=== PATIENT | male | born 1990 | race American Indian/Alaskan Native ===

== ENCOUNTER 2023-03-20 19:31 | Observation (INO) | payer OTHER ==
[~2023-03-20] VITALS: Ht 175.3 cm; Wt 61.5 kg
[~2023-03-20 19:31] MED LIST: IBUPROFEN400 MG PO
[2023-03-20 20:13] LABS: EOSINOPHILS 0.1 % (0-6)
[2023-03-20 20:18] LABS: BASOPHILS 0.6 % (0-2); HEMATOCRIT 38.1 % (35.0-50.0); HEMOGLOBIN 13.1 g/dL (12.0-18.0); LYMPHOCYTES 10.3 % (24-44); MCH 30.7 (27-36); MCHC 34.5 g/dl (30-36); MCV 88.8 fl (81-99); MONOCYTES 8.6 % (0-12); NEUTROPHILS 80.4 % (39-80); RBC 4.29 M/ul (4.3-5.7); RDW 12.9 (10.5-15.0)
[2023-03-20 20:29] LABS: ALBUMIN 4.4 g/dL (3.4-5.0); ALBUMIN/GLOBULIN RATIO 1.47 (1.1-2.4); ALCOHOL, MEDICAL <3 ng/dL (<3); ALKALINE PHOSPHATASE 78 U/L (46-116); ALT (SGPT) 19 U/L (14-59); ANION GAP 14.1 (7-21); AST (SGOT) 37 U/L (15-37); BUN/CREATININE RATIO 17.44 (6.0-28.6); CALCIUM 9.1 mg/dL (8.5-10.1); CARBON DIOXIDE 27 mmol/L (21-32); CHLORIDE 102 mmol/L (98-107); CREATININE, SERUM 0.86 mg/dL (0.70-1.30); GLOMERULAR FILTRATION RATE,EST 117 mL/min (>60); POTASSIUM 4.1 mmol/L (3.5-5.1); PROTEIN, TOTAL 7.4 g/dL (6.4-8.2); UREA NITROGEN 15 mg/dL (7-18)
[2023-03-20 20:30] LABS: INR 1.13 (0.80-1.30); PROTIME 14.1 Sec (11.2-14.2)
[2023-03-20 20:38] LABS: PLATELET COUNT 16 K/uL (140-440)
[2023-03-20 20:56] LABS: ABO A; ANTIBODY SCREEN NEGATIVE; RH POSITIVE
[2023-03-20 21:54] LABS: ABO A; RH POSITIVE
[2023-03-20 21:58] LABS: BILIRUBIN, URINE NEGATIVE (negative); BLOOD/HGB, URINE SMALL (Negative); KETONE, URINE TRACE (Negative); LEUK ESTERASE, URINE NEGATIVE (negative); NITRITE, URINE NEGATIVE (negative)
[2023-03-20 22:05] LABS: AMPHETAMINES, UR NEGATIVE (NEGATIVE); BARBITURATES, UR NEGATIVE (NEGATIVE); BENZODIAZEPINES, UR NEGATIVE (NEGATIVE); BUPRENORPHINE,UR NEGATIVE (NEGATIVE); COCAINE, UR NEGATIVE (NEGATIVE); MARIJUANA (THC), UR POSITIVE (NEGATIVE); MDMA, UR NEGATIVE (NEGATIVE); METHADONE, UR NEGATIVE (NEGATIVE); METHAMPHETAMINE, UR NEGATIVE (NEGATIVE); OPIATES, UR POSITIVE (NEGATIVE); OXYCODONE, UR NEGATIVE (NEGATIVE); PHENCYCLIDINE, UR NEGATIVE (NEGATIVE); TRICYCLIC ANTIDEPRESSANT, UR NEGATIVE (NEGATIVE)
[2023-03-20 22:12] LABS: EPITHELIAL CELLS, URINE SQUAMOUS 1+ /lpf (0-1+)
[2023-03-20 22:13] LABS: CASTS, URINE HYALINE 1+ \\lpf; REFLEX CULTURE, URINE No (No)
[2023-03-20 23:37] LABS: INFLUENZA B NAA NEGATIVE (NEGATIVE); RESPIRATORY SYNCYTIAL VIR NAA NEGATIVE (NEGATIVE)
[2023-03-21] VITALS (7 sets, daily range): BP systolic 96–140; BP diastolic 52–92
--- NOTE | 2023-03-21 01:47 | NUR ---
RECEIVED REPORT FROM ED RN. NEURO- PATIENT QUAEMPJOCELYN ARRIVED TO THE CCU AT 1247 VIA STRETCHER. VSS AND WDL. ENDORSES PAIN 5/10. MORPHINE ADMINISTERED IN ED RESP- RA, LUNG SOUNDS CLEAR CARDIAC- SB- SR. AFEBRILE, NO EDEMA NOTED. GI/- DIFFICULTY URINATING. ED RN STRAIGHT CATHED PATIENT. HE ENDORSES COMFORT CURRENTLY AND STATES HE DOES NOT HAVE A NEED TO VOID INT- HEMATOMA ON RIGHT UPPER ARM NEAR ELBOW. SLIGHT BRIGHT ON LLQ OF ABDOMEN LDA- L 20G AC
--- NOTE | 2023-03-21 03:10 | NUR ---
PATIENT QUAEMPTS REPORTS COMFORT AND RESTING WITH EYES CLOSED. VSS WDL, NO EVIDENCE OF WORSENING TRAUMA. CALL LIGHT AND PERSONAL BELONGINGS WITHIN REACH.
--- NOTE | 2023-03-21 05:10 | NUR ---
PATIENT QUAISHWARYATS IS RESTING COMFORTABLY. DENIES ANY NEEDS, WANTS, OR DESIRES. HE ENDORSES RESTING WELL AND FEELS " A BIT BETTER" THIS AM.
[2023-03-21 05:19] LABS: BASOPHILS 1.3 % (0-2); HEMATOCRIT 35.2 % (35.0-50.0); HEMOGLOBIN 11.9 g/dL (12.0-18.0); LYMPHOCYTES 21.7 % (24-44); MCH 30.4 (27-36); MCHC 33.7 g/dl (30-36); MCV 90.3 fl (81-99); MONOCYTES 11.3 % (0-12); NEUTROPHILS 64.7 % (39-80); PLATELET COUNT 240 K/uL (140-440)
[2023-03-21 05:40] LABS: ALBUMIN 3.6 g/dL (3.4-5.0); ALBUMIN/GLOBULIN RATIO 1.38 (1.1-2.4); ANION GAP 10.9 (7-21); BILIRUBIN, TOTAL 1.5 ng/dL (0.2-1.0); BUN/CREATININE RATIO 17.5 (6.0-28.6); CALCIUM 8.5 mg/dL (8.5-10.1); CREATININE, SERUM 0.8 mg/dL (0.70-1.30); POTASSIUM 3.9 mmol/L (3.5-5.1); PROTEIN, TOTAL 6.2 g/dL (6.4-8.2)
--- NOTE | 2023-03-21 06:28 | NUR ---
Patient reports 7/10 pain in llq of abdomen. 4mg of morphine administered. Will reassess pain in 15minutes.
--- NOTE | 2023-03-21 07:10 | NUR ---
PATIENT SUMI WAS ABLE TO REST SINCE HIS ARRIVAL IN THE CCU. VSS AND WDL WITH NO CONCERNS. HE WAS UPDATED REGARDING PLAN OF CARE AND STATES THAT HE FEELS VERY INVOLVED AND HAPPY WITH CARE. NEURO- ALERT AND ORIENTED X 4. ENDORSES PAIN IN LLQ OF ABDOMEN AND RIGHT ARM. 4MG OF MORPHINE ADMINISTERED DURING SHIFT FOR PAIN 12/21. ABLE TO MOVE ALL EXTREMEITIES, HOWEVER IT PAIN AND WEAKNESS NOTED IN RUE. CARDIAC- SB-SR NOTED. BP WDL. AFEBRILE, NO EDEMA, S1 AND S2 NOTED. PALPABLE RADIAL, PEDAL AND POST TIBIAL PULSES 2/2 RESP- CLEAR LUNG SOUNDS IN ALL QUADRANTS, ABLE TO COUGH AND DEEP BREATH,ON ROOM AIR GI/- GENERAL DIET. PATIENT ABLE TO DRINK WATER BUT DID NOT REQUIRE ANY SNACKS OVERNIGHT. URINAL AT BEDSIDE. DENIED ANY NEED TO VOID OVERNIGHT AND JUST WANTED TO REST. LAST BM 03/20/23 IN THE AM INT- HEMATOMA AND BRUISES NOTED ON LLQ OF ABDOMEN AND RIGHT ELBOW. THEY REMAINED THE SAME THROUGHOUT THE SHIFT. LDA- 20G ON RUE REMAINS PATENT WITH DRESSINGS DRY AND INTACT. LR GTT AT 125CC P/HR PLAN- POSSIBLE DC TODAY HANDOFF GIVEN TO MORNING RN CREW. ALL QUESTIONS AND CONCERNS ADDRESSED.
--- NOTE | 2023-03-21 07:30 | NUR ---
REPORT RECEIVED. PATIENT IS RESTING IN BED. C/O PAIN LLQ. TALKED WITH PATIENT ABOUT DX. DENIES NAUSEA, BOWEL SOUNDS ACTIVITY. IVF PATENT. RIGHT ELBOW AREA WITH SMALL AMOUNT OF SWELLING. SAID THE ELBOW PAIN IS LESS TODAY.TALKED WITH PATIENT ABOUT POC FOR THE DAY. INDICATES UNDERSTANDING.IVF PATENT. FLORIN NEED TO VOID.
--- NOTE | 2023-03-21 09:00 | NUR ---
MORPHINE 4 MG IV GIVEN FOR LLQ PAIN, RATES 7/10. CONTINUES TO TAKE BREAKFAST. DENIES INCREASE ABD PAIN WITH EATING.
--- NOTE | 2023-03-21 10:28 | NUR ---
urine sample collected. urine sample sent to lab w appropriate labels.
--- NOTE | 2023-03-21 10:40 | NUR ---
DR. WALLACE UPDATED ON PATIENT STATUS, AWARE OF VISUAL BLOOD IN URINE.
--- NOTE | 2023-03-21 12:00 | NUR ---
HAS BEEN SLEEPING. NOT AWAKENED FOR LUNCH AT THIS TIME. WILL HOLD LUNCH UNTIL WAKES. NO DISTRESS NOTED. IVF INFUSING.
--- NOTE | 2023-03-21 13:10 | NUR ---
DR. WALLACE HERE TO SEE PATIENT. ORDERS RECEIVED.
--- NOTE | 2023-03-21 13:20 | NUR ---
TO CT VIA W/C.
--- NOTE | 2023-03-21 13:30 | NUR ---
RETURN TO ROOM 126. TOL[address] WELL. SITTING UP IN BED FOR LUNCH.
--- NOTE | 2023-03-21 14:00 | NUR ---
TOOK LUNCH FAIR. RATES LLQ PAIN 5/10.
--- NOTE | 2023-03-21 14:05 | NUR ---
NIEVESO 2 () TABS GIVEN FOR PAIN.
--- NOTE | 2023-03-21 15:00 | NUR ---
AMBULATED TO BR TO VOID 400 ML OF HAI URINE. NO VISUAL BLOOD NOTED. DENIES PAINFUL URINATION AT THIS TIME. IVF INFUSING AT 100 ML/HR.
--- NOTE | 2023-03-21 17:35 | NUR ---
UP TO BR TO VOID TO URINAL. URINE IS CLEAR YELLOW. STATES STREAM ON URINE IS ID NORMAL NOW. CONTINUES TO DENY PAIN WITH VOIDING.
--- NOTE | 2023-03-21 17:45 | NUR ---
AMBULATED IN [facility]HAN OUT ON MED-SURG, RN WITH PATIENT. TOLERATED WELL.
--- NOTE | 2023-03-21 18:00 | NUR ---
C/O NAUSEA. ZOFRAN 8 MG IV GIVEN.
--- NOTE | 2023-03-21 18:13 | NUR ---
DR. WALLACE UPDATED ON CT SCAN WELL CURRENT OVERALL STATUS. NO FUTHER ORDERS AT THIS TIME.
--- NOTE | 2023-03-21 18:34 | NUR ---
DENIES NAUSEA. RESTING.
--- NOTE | 2023-03-21 20:30 | NUR ---
PATIENT UP TO THE BATHROOM TO VOID. PATIENT VOIDED IN TOILET, NOT URNAL. REPORTS URINE A "YELLOW" WITH NO SIGNS OF BLOOD LIKE PREVIOUSLY NOTED. PATIENT DID NOT HAVE PAIN OR DIFFICULTY VOIDING. PATIENT RETURNED TO BED. FRESH ICE WATER AND A SNACK PROVIDED. PATIENT HAS POOR APPETITE AND DID NOT EACH MUCH OF HIS DINNER. PATIENT NOTED TO HAVE BRUISING ON HIS LLQ AND ON HIS RIGHT ELBOW. PATIENT REPORTS PAIN WELL CONTROLLED WITH NORCO. DENIED ANY OTHER NEEDS RIGHT NOW. CALL LIGHT IN REACH.
--- NOTE | 2023-03-21 22:27 | NUR ---
PATIENT UP TO BATHROOM INDEPENDENTLY. PT REPORTS PAIN, PRN NORCO GIVEN. PT BACK TO BED AND IS RESTING PEACEFULLY. ALL QUESTIONS AND CONCERNS ADDRESSED. CALL LIGHT WITH IN REACH
--- NOTE | 2023-03-22 00:15 | NUR ---
PATIENT UP TO THE BATHROOM. NEW BAG IV FLUIDS HUNG. IV SITE WNL. PATIENT REPORTS IMPROVED PAIN CONTROL. DENIED ANY CONCERNS. SNACK PROVIDED. CALL LIGHT IN REACH.
[2023-03-22 05:20] VITALS: BP 130/78
--- NOTE | 2023-03-22 05:22 | NUR ---
PATIENT INTO THE BATHROOM. REPORTS PAIN. 10/21. PRN MEDS PROVIDED. PATIENT VS STABLE. ASSESSMENT UNCHANGED. IV FLUIDS PER ORDER, SITE WNL.
[2023-03-22 05:25] LABS: BASOPHILS 0.8 % (0-2); EOSINOPHILS 4.8 % (0-6); HEMATOCRIT 33.6 % (35.0-50.0); HEMOGLOBIN 11.3 g/dL (12.0-18.0); LYMPHOCYTES 31.8 % (24-44); MCH 30.1 (27-36); MCHC 33.7 g/dl (30-36); MCV 89.4 fl (81-99); MONOCYTES 11.1 % (0-12); NEUTROPHILS 51.5 % (39-80); PLATELET COUNT 214 K/uL (140-440); RBC 3.76 M/ul (4.3-5.7); RDW 12.9 (10.5-15.0)
[2023-03-22 05:37] LABS: ANION GAP 10.6 (7-21); BUN/CREATININE RATIO 10.38 (6.0-28.6); CALCIUM 8.4 mg/dL (8.5-10.1); CREATININE, SERUM 0.77 mg/dL (0.70-1.30); MAGNESIUM 1.6 mg/dL (1.8-2.4); POTASSIUM 3.6 mmol/L (3.5-5.1)
--- NOTE | 2023-03-22 06:30 | NUR ---
update given to
--- NOTE | 2023-03-22 06:42 | CONS ---
[facility] [address], [place] [address] Signed DATE OF CONSULTATION: 03/21/2023 CHIEF COMPLAINT: Kicked by horse. 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 He was at a recent stock yard sale and they were trying to get a horse fresh off the mountains under control. The horse was obviously anxious and kicked him right in the right elbow and then it kicked him right in his buckle overlying his pubic bone. It knocked him to the ground. He tried to get on the horse and it bucked him off. This happened around 3:30 p.m. yesterday afternoon. He came to our emergency room finally for evaluation. In the emergency room, the x-rays and CT scan of the right elbow and arm were unremarkable. He had a CT scan of his neck and that was unremarkable other than there may be some small meningioma and I recommended an outpatient MRI. CT scan of abdomen and pelvis showed the left lower quadrant abdominal wall hematoma and probably a small rectus sheath hematoma as well. He has also had some blood down in his left hemiscrotum scrotum as is evident this morning by the ecchymoses. He had just a tiny bit of hematuria initially, but he was unable to pee earlier today, so he underwent a straight catheterization and has moderately dark hematuria. We decided at this point, he prior needs a CT urogram since it is Wednesday. If he needs a retrograde cystourethrogram, we will have to get tomorrow when our radiologist is present. In the meantime, he was admitted overnight, he has been doing quite well. He is on IV fluids and tolerating his diet and requiring some pain control of course. PAST MEDICAL HISTORY: None. PAST SURGICAL HISTORY: None. SOCIAL HISTORY: He likes to smoke one cigarette a day. He likes to smoke marijuana every day. He does not drink. He is to his Radha at [phone]. 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 Dr. Moose Russo is his primary care provider and he prefers the [facility]. He does have one daughter. FAMILY HISTORY: None. REVIEW OF SYSTEMS: Electronically Signed By: TARYN WALLACE MD 03/22/23 0642 PATIENT NAME: JEF RUSSO CONSULTATION DATE OF : 88 REPORT #: [id number] PHYSICIAN: TARYN WALLACE MD PCP: [facility] REPORT IS CONFIDENTIAL AND NOT TO BE RELEASED WITHOUT AUTHORIZATION [facility] [address], [place] [address] Signed None. ALLERGIES: Penicillin, oxacillin. MEDICATIONS: None. PHYSICAL EXAMINATION: VITAL SIGNS: Blood pressure 117/70, heart rate 62, respiratory rate 16, temperature 97.7, he is 98% on room air. He is 5 feet 9 inches and 61 kg with a body mass index of 20. GENERAL: Jef is a 32-year-old gentleman lying supine in his hospital bed, asleep. He is easily awakened. He does appear systemically ill or toxic. LUNGS: Clear to auscultation bilaterally. HEART: Regular rate and rhythm without murmurs. ABDOMEN: Soft and flat but he is tender in the left lower quadrant, particularly in the left groin and down toward his left hemiscrotum. His left hemiscrotum is moderately dark with ecchymoses. Really very little swelling. Penis seems to be unremarkable. He says he can urinate but it porter a bit. LABORATORY DATA: His white blood cell count 9.6, hemoglobin was 13.1 it is down to 11.9. His platelets are 240. Electrolytes unremarkable with a BUN 14, creatinine 0.80 with a total bilirubin of 1.5. AST, ALT, and alkaline phosphatase all normal. Albumin is good at 3.6. COVID was negative. Urinalysis showed his urine specific gravity greater 1.030 with 4-6 red blood cells. Course of THC was positive. RADIOGRAPHIC STUDIES: The x-rays and CT scan of the right elbow and arm were unremarkable. CT scan of his neck was unremarkable, except there might be some type of meningioma around the brain and it was recommended he have an MRI as an outpatient. He does have a hematoma in the left lower quadrant abdominal wall along with the rectus sheath with some blood in the right hemiscrotum. ASSESSMENT AND PLAN: Jef is a 32-year-old gentleman, who is quite kem after being kicked three times by a horse and then bucked off the horse. He has a left lower quadrant abdominal wall hematoma, probably in the rectus sheath as well. He has some persistent hematuria if not a little darker this morning. We are going to go ahead and order a CT scan urogram currently. He has been on regular diet and IV fluids currently with some pain control. He will probably end up staying till tomorrow. We will probably repeat the UA in the morning to see if it is clearing. If not, he might need a retrograde cystourethrogram. I have reviewed this with Jef and his nurse. He has expressed understanding and Electronically Signed By: TARYN WALLACE MD 03/22/23 0642 PATIENT NAME: JEF RUSSO CONSULTATION DATE OF : 88 REPORT #: [id number] PHYSICIAN: TARYN WALLACE MD PCP: [facility] REPORT IS CONFIDENTIAL AND NOT TO BE RELEASED WITHOUT AUTHORIZATION [facility] [address] [place] [id number] Signed agrees with the above plan. Taryn Wallace MD ALB/MODL /[id number] cc: MD Moose Stone MD Copies: TARYN WALLACE MD, REX MD ~ Electronically Signed By: TARYN WALLACE MD 03/22/23 0642 PATIENT NAME: JEF RUSSO CONSULTATION DATE OF : 88 REPORT #: [id number] PHYSICIAN: TARYN WALLACE MD PCP: [facility] REPORT IS CONFIDENTIAL AND NOT TO BE RELEASED WITHOUT AUTHORIZATION
--- NOTE | 2023-03-22 07:30 | NUR ---
REPORT RECEIVED. PATIENT IS RESTING IN BED. STATES PAIN IS LESS AFTER RECEIVING MEDICATION EARLIER. PLAN IS TO DISCHARGE TODAY. OERDERS HAVE BEEN RECEIVED FOR DISCHARGE, DR. WALLACE HERE TO SEE PATIENT EARLIER. ASSESSMENT DONE.
[2023-03-22 07:33] VITALS: BP 131/84
[2023-03-22] MEDS ORDERED: OXYCODONE HCL10 MG PO (08:45)
--- NOTE | 2023-03-22 09:00 | NUR ---
UP TO BR TO VOID. DENIES PAINFUL URINATION. STABLE ON FEET.
[2023-03-22] MEDS ORDERED: TYLENOL325 M1 PO (09:10)
[2023-03-22] MEDS ORDERED: COLACE100 MG PO (09:11)
[2023-03-22] MEDS ORDERED: MIRALAX17 GM PO (09:12)
--- NOTE | 2023-03-22 09:25 | NUR ---
MED REC COMPLETE
--- NOTE | 2023-03-22 09:30 | NUR ---
TOOK ENSURE FOR BREAKFAST. REFUSING FUTHER FOOD. STATES HE DOESN'T FEEL HUNGERY. DISCHARGE INSTRUCTIONS GIVEN WITH PATIENT UNDERSTANDING. IV SITE DC'D WITH CATH INTACT.
--- NOTE | 2023-03-22 09:45 | NUR ---
DISCHARGED TO HOME. ESCORTED OUT VIA W/C, ACCOMPY BY AND STAFF MEMBER.
--- NOTE | 2023-03-23 08:14 | DS ---
[facility] [address], [place] [address] Signed ADMISSION DATE: 03/21/2023 DISCHARGE DATE: 03/22/2023 FINAL DIAGNOSES: 1. Kicked by a horse x3. 2. Left rectus sheath and abdominal wall hematoma. PROCEDURES: 1. Multiple x-rays. 2. CT scan of abdomen and pelvis x2. 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 They had brought some horses down off the mountain, they were basically wild. The horse kicked him in his right elbow then and his abdomen right over the belt buckle and knocked him to the ground. It apparently kicked him a 3rd time. At some point, he got on the horse and it bucked him off. He ended up finally coming to the emergency room. HOSPITAL COURSE: Jef was evaluated in the emergency room and initially his platelet count was low, but we repeated it, it was fine. His initial hemoglobin was 13.1, it dropped down to about 11.3. He did have just a little bit red blood cells initially in the urine. The CT scan showed what might be a meningioma and they recommended outpatient MRI through his primary care provider. The left rectus sheath hematoma and hematoma in the left abdominal wall was evident. No other major injuries. His elbow, arm and neck were unremarkable. We kept him in the hospital and he had a little more blood that was visible in the morning, so we did a CT urogram and it was unremarkable. He has been able to the eat and his pain is under control with 20 mg of hydrocodone about every 6 hours. He has been able to ambulate around the hallways. He has some ecchymoses in his left hemiscrotum and he is tender in the left lower quadrant. At this point, he is doing well and we are going to be discharging him home. DISCHARGE PLANS AND MEDICATIONS: Jef is going to go home. We are going to use oxycodone immediate release 10 mg tablets one tablet p.o. q.6 hours p.r.n. for severe pain. We will dispense 20 tablets with no refills. He can use Tylenol [id number] for [id number] pain as needed. He is welcome to purchase Colace or MiraLAX to use for constipation. I am going to have him back in the office in 10 to 14 days for followup. I have asked him not to do any heavy pushing, pulling, riding horses, etc for a couple of months and allow this hematoma to resolve. He said he has finals at the end of June 2023. He Electronically Signed By: TARYN LANDEROS MD 03/23/23 0814 PATIENT NAME: JEF JONAS DISCHARGE SUMMARY DATE OF : 88 REPORT #: [id number] PHYSICIAN: TARYN LANDEROS MD PCP: [facility] REPORT IS CONFIDENTIAL AND NOT TO BE RELEASED WITHOUT AUTHORIZATION [facility] [address], [place] [address] Signed should be okay to ride horses at that time. Otherwise, he is welcome to perform his activities of daily living including walking up and down stairs and showering and bathing as usual. He is going to follow a regular diet. He has expressed understanding and agrees with the above plan. He needs to follow up with his primary care provider to consider MRI of his brain to evaluate whether or not he has a meningioma. Taryn Landeros MD ALB/MODL /[id number] cc: Taryn Landeros MD [facility] Copies: TARYN LANDEROS MD ~ Electronically Signed By: TARYN LANDEROS MD 03/23/23 0814 PATIENT NAME: JEF JONAS DISCHARGE SUMMARY DATE OF : 88 REPORT #: [id number] PHYSICIAN: TARYN LANDEROS MD PCP: [facility] REPORT IS CONFIDENTIAL AND NOT TO BE RELEASED WITHOUT AUTHORIZATION
== END 2023-03-22 09:45 | disposition home or self-care (01) ==
LOC: ED 19:31 → CCU 19:33 → ED 03-21 00:09 → CCU 03-21 00:09
PROVIDERS: Family Medicine; ADMIT Colon & Rectal Surgery; ATTEND Colon & Rectal Surgery
DX: S30.1XXA Contusion of abdominal wall, initial encounter (principal); F17.210 Nicotine dependence, cigarettes, uncomplicated; W55.12XA Struck by horse, initial encounter; Y93.9 Activity, unspecified; Z88.0 Allergy status to penicillin
CPT/HCPCS: 36415; 70450; 72125; 73080; 73200; 74176; 74177; 80048; 80053; 81001; 83735; 84100; 85025; 85049; 85610; 86850; 86900; 86901; 87502; 96361; 96375; 96376; 99285-25; A9270; C9803; G0378; G0480; J0780; J2270; J2405; J3475; J7121; P9059; Q9967; U0002